=== PATIENT | male | born 1975 | race Caucasian/White ===

== ENCOUNTER 2017-01-08 21:30 | Emergency (ER) | payer SELFPAY ==
[2017-01-08] MEDS: Lidocaine 2% 20ml Vial IP ONE (22:05)
[2017-01-08] MEDS: DIPH,PERTUSS(ACELL),TET VAC/PF 0.5 ML DISP.SYRIN IM ONE (23:05)
[2017-01-08] MEDS: NEOMYCIN SU/BACITRAC ZN/POLY 1 EACH OINT.PACK TP ONE (23:05)
[2017-01-09 00:42] VITALS: BP 121/84
--- NOTE | 2017-01-09 01:46 | ED Physician Documentation ---
Hand Injury - HISTORIAN Historian: patient - HPI Stated Complaint: left 2nd finger injury Chief Complaint: Hand Injury Additional Information: cut left 2nd finger in [address] [place] accident Onset: just prior to arrival Where: home Severity: moderate Context: laceration Location of Injury: L hand Modifying Factors: pain on movement Further Comments: no - ROS CONST: no problems GI/: denies: problems urinating, nausea, vomiting NEURO: none CVS/RESP: none EYES/ENT: none MS/SKIN/LYMPH: other (2.5 cm flap laceration left 2nd finger) - PAST HX Past History: none Immunizations: tetanus Allergies/Adverse Reactions: Allergies Allergy/AdvReac Type Severity Reaction Status Date / Time No Known Allergies Allergy Verified 01/08/17 21:55 Home Medications: Ambulatory Orders Medication Instructions Recorded NK [NK] 01/08/17 - SOCIAL HX Smoking History: cigarettes Alcohol Use: occasionally Drug Use: none - FAMILY HX Family History: no significant history - VITAL SIGNS Vital Signs: Vital Signs Temp Pulse Resp BP Pulse Ox 98.2 F 81 14 121/84 99 01/08/17 21:30 01/09/17 00:39 01/09/17 00:39 01/09/17 00:39 01/09/17 00:39 - REVIEWED ASSESSMENTS Nursing Assessment Reviewed: Yes Vitals Reviewed: Yes Procedures Wound Location: upper extremity (left 2nd finger) Wound Length: 2.5 cm Wound's Depth, Shape: into muscle, flap Wound Explored: clean Irrigated w/ Saline (ccs): 500 Betadine Prep?: Yes Anesthesia: Other (2% plain lidocaine 6 cc each side of left 2nd finger for nerve block) Volume of Anesthetic: 12 cc total Wound Repaired With: sutures (simple interrupted) Suture Size/Type: 5:0, 4:0 Number of Sutures: 11 Layer Closure?: No Sterile Dressing Applied?: Yes Splint Applied?: No Sling Applied?: No Progress - Results/Orders Results/Orders: no testing ordered - Progress Progress: adacel given Critical Care Note - Critical Care Note Total Time (mins): 0 ED Results Lab/Radiology - Lab Results Lab Results: none ordered - Radiology Radiology Impressions: none ordered - Orders Orders: ED Orders Category Date Time Status Diph,Pertuss(Acell),Tet Vac/Pf [Adacel] Med 01/08/17 23:15 Discontinued 0.5 ml IM .ONCE ONE Lidocaine 2% 20ml Vial [Xylocaine] Med 01/08/17 22:04 Discontinued 20 mg IP NOW ONE Neomycin Vazquez/Bacitrac Zn/Poly [Triple Antibiotic Med 01/08/17 22:04 Discontinued Ointment] 1 each TP NOW ONE Hand Injury Physical Exam - Exam General Appearance: alert, moderate distress Hand: no evidence of FB, other (2.5 cm flap laceration left 2nd fingerpad, no bone or tendon involvement) Wrist: normal inspection, non-tender, no evidence of injury Neuro: sensation nml, motor nml Vascular: no vascular compromise Tendons: tendon function nml Forearm/Elbow/Arm: uninjured above wrist Skin: warm/dry, normal color Head/ENT: nml inspection, pharynx nml Neck/Back: nml inspection, non-tender Resp/CVS: chest non-tender, breath sounds nml, heart sounds nml, no resp. distress, lungs clear, reg. rate & rhythm Abdomen: non-tender, no organomegaly, nml bowel sounds, no distention Discharge Clincal Impression: Laceration Referrals: Primary Doctor,No [Primary Care Provider] - 2 Days Home Medications: Ambulatory Orders NK [NK] 01/08/17 Comments: home in stable condition with suture care instructions Condition: Stable Disposition: 01 HOME, SELF-CARE Decision to Admit: NO Decision Time: 00:30
== END 2017-01-08 23:25 | disposition home or self-care (01) ==
LOC: ED 21:30
DX: S61.211A Laceration without foreign body of left index finger without damage to nail, initial encounter (principal); X58.XXXA Exposure to other specified factors, initial encounter; Y93.9 Activity, unspecified; Y99.9 Unspecified external cause status
CPT/HCPCS: 90471; 90715; 99283